=== PATIENT | female | born 1985 | race Caucasian/White ===

== ENCOUNTER 2017-07-07 14:27 | Inpatient (IN) | payer MEDICAID ==
[~2017-07-07] VITALS: Ht 172.7 cm; Wt 96.3 kg
[2017-07-07 15:27] LABS: CALCIUM 8.9 mg/dL (8.5-10.1); CARBON DIOXIDE 24.5 mmol/L (21-32); CHLORIDE SERUM 102 mmol/L (98-107); CREATININE SERUM 0.7 mg/dL (0.6-1.0); GFR1 > 60 mL/min; GLUCOSE SERUM 110 mg/dL (74-106); POTASSIUM SERUM 3.7 mmol/L (3.5-5.1); SODIUM SERUM 137 mmol/L (136-145)
[2017-07-07 15:31] LABS: ALBUMIN 3.9 g/dL (3.4-5.0); ALKALINE PHOSPHATASE 68 U/L (46-116); ALT/SGPT 19 U/L (14-59); AST/SGOT 11 U/L (15-37); BILIRUBIN TOTAL 0.3 mg/dL (0.20-1.00)
[2017-07-07 15:32] LABS: TOTAL PROTEIN, SERUM 8.7 g/dL (6.4-8.2)
[2017-07-07 15:38] LABS: PLATELET COUNT 238 x10^3mcL (130-400)
[2017-07-07 15:45] LABS: BASOPHIL % 0 % (0-2); RED CELL DISTRIBUTION WIDTH 21.9 % (11.5-14.5)
[2017-07-07 16:14] LABS: AMPHETAMINE QUAL UR NONE DETECTED (NEG <=1000)
[2017-07-07] MEDS ORDERED: IRON90 MG (16:34)
[2017-07-07 17:00] LABS: CHOLESTEROL/HDL RATIO 2.8; MAGNESIUM 1.8 mg/dL (1.8-2.4); PHOSPHOROUS 2.9 mg/dL (2.5-4.9)
[2017-07-07 17:02] LABS: microscopic required? YES; urine erythrocyte 1+ (NEGATIVE)
[2017-07-07 17:10] LABS: FREE T4 1.01 ng/dL (0.76-1.46); FREE THYROXINE INDEX 2.5 ug/dL (1.4-4.5); T3 TOTAL 0.89 ng/mL; T4(THYROXINE) 7.6 ug/dL (4.7-13.3)
[2017-07-07 17:21] VITALS: BP 135/63
[2017-07-07 17:29] LABS: rbc morphology (normal/abnorm) ABNORMAL (NORMAL)
[2017-07-07 17:34] LABS: ovalocyte/elliptocyte 1+; target cell (codocyte) 2+; tear drop cell (dacryocyte) 1+
[2017-07-07 18:22] VITALS: BP 146/60
[2017-07-07 18:44] VITALS: BP 127/61
[2017-07-07 21:39] VITALS: BP 110/55
[2017-07-07 22:10] VITALS: BP 110/43
[2017-07-08] VITALS (8 sets, daily range): BP systolic 98–111; BP diastolic 47–57; Ht 172.7 cm; Wt 96.3 kg
[2017-07-08 00:47] LABS: BASOPHIL % 0.1 % (0-2); PLATELET COUNT 205 x10^3mcL (130-400)
[2017-07-08 01:08] LABS: RED CELL DISTRIBUTION WIDTH 29.5 % (11.5-14.5)
[2017-07-08 01:18] LABS: ovalocyte/elliptocyte 1+; rbc morphology (normal/abnorm) ABNORMAL (NORMAL)
[2017-07-08 06:37] LABS: PLATELET COUNT 216 x10^3mcL (130-400)
[2017-07-08 06:40] LABS: BASOPHIL % 0 % (0-2); RED CELL DISTRIBUTION WIDTH 33.6 % (11.5-14.5)
[2017-07-08 07:48] LABS: CALCIUM 8.5 mg/dL (8.5-10.1); CARBON DIOXIDE 23.8 mmol/L (21-32); CHLORIDE SERUM 101 mmol/L (98-107); CREATININE SERUM 0.7 mg/dL (0.6-1.0); GFR1 > 60 mL/min; GLUCOSE SERUM 110 mg/dL (74-106); POTASSIUM SERUM 3.7 mmol/L (3.5-5.1); SODIUM SERUM 137 mmol/L (136-145)
[2017-07-08 08:23] LABS: rbc morphology (normal/abnorm) ABNORMAL (NORMAL)
[2017-07-08 08:24] LABS: ovalocyte/elliptocyte 1+
[2017-07-08] MEDS ORDERED: FERROUS SULFAT325 M2 PO (16:54)
[2017-07-08] MEDS ORDERED: VITAMIN C PURE500 MG PO (16:55)
[2017-07-09 08:17] LABS: BASOPHIL % 0.1 % (0-2); PLATELET COUNT 212 x10^3mcL (130-400)
[2017-07-09 08:22] LABS: rbc morphology (normal/abnorm) ABNORMAL (NORMAL)
[2017-07-09 08:26] LABS: CALCIUM 8.7 mg/dL (8.5-10.1); CARBON DIOXIDE 26.6 mmol/L (21-32); CHLORIDE SERUM 101 mmol/L (98-107); CREATININE SERUM 0.7 mg/dL (0.6-1.0); GFR1 > 60 mL/min; GLUCOSE SERUM 100 mg/dL (74-106); POTASSIUM SERUM 3.6 mmol/L (3.5-5.1); SODIUM SERUM 138 mmol/L (136-145)
[2017-07-09 10:00] VITALS: BP 105/55
[2017-07-09 14:27] VITALS: BP 106/60
[2017-07-09 17:10] VITALS: BP 99/50
== END 2017-07-09 19:41 | disposition home or self-care (01) | DRG 663 ==
LOC: ED 14:27 → DU 16:11
PROVIDERS: Emergency Medicine; Family Medicine Sports Medicine
PROC: 30233N1 Transfusion of Nonautologous Red Blood Cells into Peripheral Vein, Percutaneous Approach (ICD-10-PCS; principal; 2017-07-08)
DX: D64.9 Anemia, unspecified (principal); E03.9 Hypothyroidism, unspecified; N93.8 Other specified abnormal uterine and vaginal bleeding; F31.9 Bipolar disorder, unspecified; F43.10 Post-traumatic stress disorder, unspecified; F34.1 Dysthymic disorder; Z53.29 Procedure and treatment not carried out because of patient's decision for other reasons; M94.0 Chondrocostal junction syndrome [Tietze]; R31.9 Hematuria, unspecified
CPT/HCPCS: 83880; 84439; J7040; J7050; P9016; Q0092; Q0163